=== PATIENT | female | born 1985 | race African-American/Black ===

== ENCOUNTER 2016-09-30 12:23 | Emergency (ER) | payer OTHER, BC ==
[~2016-09-30] VITALS: Ht 167.6 cm; Wt 67.5 kg
[2016-09-30 12:30] VITALS: TEMP 98.2; Ht 167.6 cm; Wt 67.5 kg
--- NOTE | 2016-09-30 12:46 | NUR ---
PROVIDER Tl MUNOZ APRN IN ROOM TO SEE PT
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
--- NOTE | 2016-09-30 13:28 | NUR ---
RADIOLOGY RADIOLOGY IN ROOM FOR PORTABLE FILMS
[2016-09-30] MEDS ORDERED: NO DAILY MEDS (14:01)
--- NOTE | 2016-09-30 14:05 | NUR ---
DISMISSAL DISMISSAL INSTRUCTIONS TO PT WITHOUT FURTHER QUESTIONS. PT LEFT DEPARTMENT AMBUALTORY WITH BROTHER
[2016-09-30 16:23] VITALS: BP 119/69; PULSE 79; RESP 16; O2SAT 98
--- NOTE | 2016-10-01 08:54 | DI ---
Indication: ITS.REASON: pain over proximal long finger PROCEDURE: HAND LEFT 3 VIEW: Encounter: Initial Comparison: None Findings: There is no acute fracture, dislocation or malalignment identified. Impression: No acute osseous abnormality. .
== END 2016-09-30 14:05 | disposition home or self-care (01) ==
LOC: ED 12:23
DX: M79.645 Pain in left finger(s) (principal); M79.89 Other specified soft tissue disorders; V89.2XXA Person injured in unspecified motor-vehicle accident, traffic, initial encounter; Y93.89 Activity, other specified; Y92.9 Unspecified place or not applicable; Y99.8 Other external cause status

== ENCOUNTER 2016-10-05 10:30 | Day surgery (SDC) | payer OTHER, BC ==
[2016-10-05] VITALS (20 sets, daily range): BP systolic 106–131; BP diastolic 74–87; PULSE 66–94; RESP 11–16; TEMP 96.4–98.4; O2SAT 96–100; Ht 167.6 cm; Wt 65.7 kg
[~2016-10-05] VITALS: Ht 167.6 cm; Wt 65.7 kg
[~2016-10-05 10:30] MED LIST: CEFAZOLIN 1 GRAM INJECTION IV ONE; IBUP-1724 PO; LIDOCAINE 1% (10mg/ml) 2ml SDV INJ ONE; LR 1,000 ML IV SCH; MULT-933 PO
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
[2016-10-05] MEDS ORDERED: ACET-62 PO (11:21)
[2016-10-05] MEDS ORDERED: LR 1,000 ML IV SCH (11:30)
[2016-10-05] MEDS ORDERED: BUPIVACAINE 0.25% (2.5mg/ml) INJ 30ml SDV ONE (11:49)
--- NOTE | 2016-10-05 12:07 | ANESPREOP ---
Anesthesia Record Date and Time DATE: 10/05/16 TIME: 12:06 Proposed Surgical Procedure ORIF LT CLAVICLE Allergies: Coded Allergies: chloroquine (Verified Allergy, Mild, ITCHING, 10/05/16) Ht/Wt/BMI Height: 5 ' 6.00 " Weight: 65.700 kg BMI: 23.4 kg/m2 Vital Signs Date Time Temp Pulse Resp B/P Pulse Ox O2 Delivery O2 Flow Rate FiO2 10/05/16 11:01 98.4 93 13 127/80 98 Room Air Medications Inpatient Medications Current Medications Medications (Trade) Dose Ordered Sig/Gerardo Start Time Stop Time Status Last Admin Dose Admin Lactated Ringer's 1,000 ml @ 50 mls/hr Q20H 10/05/16 07:00 10/05/16 10:10 DC Lactated Ringer's (Lactated Ringers) 1,000 ml @ 50 mls/hr Q20H 10/05/16 11:30 UNV 10/05/16 11:38 50 MLS/HR Acetaminophen (Acetaminophen) 500 Mg Tablet, 1-2 TAB PO for PAIN, (Reported) Do not exceed 3,200 mg of acetaminophen in a 24 hours period. Last Taken: on 10/04/16 0700 Ibuprofen (Ibuprofen) 200 Mg Tablet, 2 TAB PO Q4H PRN for PAIN, (Reported) Last Taken: on 10/02/16 0700 Multivitamin (Multi-Day Vitamins) 1 Each Tablet , 1 TAB PO DAILY, (Reported) Last Taken: on Unknown Date & Time Currently on Beta Jada: No Medical/Surgical History Anesthesia PMH: Denies: *Diabetes, Anesthesia Reactions (NO AIRWAY ISSUES), Sleep Apnea, Thyroid Disease Smoking Status: Never smoker Has pt. smoked today?: No Use Chewing Tobacco?: No Second Hand Exposure: No Substance Use Type: does not use Alcohol Intake: none Past Surgical History Orthopedic Surgeries: Yes - L ACHILLES REPAIR PER H&P Abdominal Surgeries: Genitourinary Surgeries: Cardiac Surgeries: Endocrine Surgeries: Reproductive Surgeries: Neurological Surgeries: Ear Surgeries: Nose Surgeries: Throat Surgeries: Other Surgeries: Family Hx of Anesthesia Advers: none Hx of Motion Sickness: No Pertinent Findings Test 10/05/16 10:54 Urine Test Negative (NEGATIVE) EKG Rhythm: Sinus Rhythm Airway Assessment Mallampati Score: II TMD: 3 Fingerbreadths Neck Extension: Good Overall Assessment: No Airway Concerns ASA: 1 Discussion Discussed risks/options/alternatives of anesthesia and questions answered. Patient consents. Nursing pain assessment noted. Attestation Statement Prior to the delivery of any anesthetic medication, I examined the patient, developed the plan, obtained the patient's consent and discussed the risk and benefits of the procedure with the patient/guardian. GABRIELLA TAN October 05, 2016 12:07
[2016-10-05] MEDS ORDERED: LIDOCAINE 2% (20mg/ml) 5ml PF SDV ONE (12:14)
[2016-10-05] MEDS ORDERED: ROCURONIUM 50mg/5ml INJECTION IV ONE (12:14)
[2016-10-05] MEDS ORDERED: PROPOFOL 200mg 20 ML IV ONE (12:14)
[2016-10-05] MEDS ORDERED: FENTANYL 250mcg/5ml INJECTION ONE (12:14)
[2016-10-05] MEDS ORDERED: MIDAZOLAM 2mg/2ml INJECTION IV ONE (12:15)
[2016-10-05] MEDS ORDERED: ONDANSETRON 4mg/2ml INJECTION ONE (13:14)
[2016-10-05] MEDS ORDERED: KETOROLAC 30mg/ml INJECTION ONE (13:22)
[2016-10-05] MEDS ORDERED: HYDROMORPHONE 2mg/ml INJECTION ONE (13:27)
[2016-10-05] MEDS ORDERED: DEXAMETHASONE 4mg/ml - 1ml INJECTION ONE (13:33)
[2016-10-05] MEDS ORDERED: SUGAMMADEX 200 MG/2 ML INJECTION IV ONE (13:59)
--- NOTE | 2016-10-05 14:13 | PDPROCED ---
Immediate Operative Note DATE: 10/05/16 TIME: 14:12 Preop Diagnosis: left midshaft oblique clavicle fracture Postop Diagnosis: Left midshaft oblique clavicle fracture Surgical Procedures: Other (ORIF left clavicle) Surgeon: Yousif [employer] Finance Manager: NAKIA Doran Anesthesia: General Complications: None Estimated Blood Loss see anesthesia LIONEL CRUZ October 05, 2016 14:13
[2016-10-05] MEDS ORDERED: ONDANSETRON 4mg/2ml INJECTION IV PRN (14:15)
[2016-10-05] MEDS ORDERED: MORPHINE SULFATE 10 MG SYRINGE IV PRN (14:15)
[2016-10-05] MEDS: HYDROMORPHONE 2mg/ml INJECTION IV PRN ×2 (14:32→14:42)
--- NOTE | 2016-10-05 14:56 | ANESPO ---
Post-Op Note Date 10/05/16 Status Pt Participated in Evaluation: Pt participated in person Vital Signs Date Time Temp Pulse Resp B/P Pulse Ox O2 Delivery O2 Flow Rate FiO2 10/05/16 14:50 74 14 117/74 96 Room Air 10/05/16 14:30 4.00 10/05/16 14:19 96.4 Respiratory Function: Airway patent Cardiovascular Function: Regular pulse Mental Status: Alert/oriented Pain Level Intensity: 5 Hydration: IV infusing Complications during Recovery None apparent Follow-Up Instructions Instructions Per Surgeon GABRIELLA TAN October 05, 2016 14:56
--- NOTE | 2016-10-05 17:17 | DI ---
EXAM: RF CLAVICLE LEFT COMPARISON: None available. HISTORY: ITS.REASON: ORIF LEFT CLAVICLE . FINDINGS: Three portable Intra-Op C-arm images shows fixation plate and screws transfixing a fracture through the mid diaphysis of the clavicle which now appears to be in good position and alignment. Number of images:3. Radiation dose: 63.96 IMPRESSION: Three portable Intra-Op C-arm images shows fixation plate and screws transfixing a fracture through the mid diaphysis of the clavicle which now appears to be in good position and alignment. LOC[place] OF [place]CT[place]: [facility] [place]
--- NOTE | 2016-10-05 17:45 | DI ---
EXAM: RF CLAVICLE LEFT COMPARISON: None available. HISTORY: ITS.REASON: ORIF LEFT CLAVICLE . FINDINGS: Three portable Intra-Op C-arm images shows fixation plate and screws transfixing a fracture through the mid diaphysis of the clavicle which now appears to be in good position and alignment. Number of images:3. Radiation dose: 63.96 IMPRESSION: Three portable Intra-Op C-arm images shows fixation plate and screws transfixing a fracture through the mid diaphysis of the clavicle which now appears to be in good position and alignment. [place] [facility] [place]
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
== END 2016-10-05 16:18 | disposition home or self-care (01) ==
LOC: SCU 10:30
PROVIDERS: ATTEND Orthopaedic Surgery
DX: S42.022A Displaced fracture of shaft of left clavicle, initial encounter for closed fracture (principal); V89.2XXA Person injured in unspecified motor-vehicle accident, traffic, initial encounter; Y93.89 Activity, other specified; Y92.9 Unspecified place or not applicable; Y99.8 Other external cause status
CPT/HCPCS: 23515; 73000; 76000; 81025; C1713; J0690; J1100; J1170; J1885; J2250; J2405; J2704; J3010; J7120